=== PATIENT | female | born 1975 | race Caucasian/White ===

== ENCOUNTER 2019-06-12 14:40 | Emergency (ER) | payer BC, SELFPAY ==
--- NOTE | 2019-06-12 15:23 | ER ---
Nurse's Notes [facility] Name: Gilda Staples Age: 43 yrs Sex: Female : 1975 Arrival Date: 06/12/2019 Time: 14:43 Bed 12 Private MD: Diagnosis: Otitis media, unspecified, right ear Presentation: 06/12 14:51 Presenting complaint: Patient states: right ear pain X 1 week, draining last night. iw Transition of care: patient was not received from another setting of care. Onset of symptoms was June 07, 2019. Risk Assessment: Do you want to hurt yourself or someone else? Patient reports no desire to harm self or others. Initial Sepsis Screen: Does the patient meet any 2 criteria? No. Patient's initial sepsis screen is negative. Does the patient have a suspected source of infection? No. Patient's initial sepsis screen is negative. Care prior to arrival: None. 14:51 Method Of Arrival: Ambulatory iw 14:51 Acuity: MARGUERITE 4 iw Triage Assessment: 15:20 General: Appears in no apparent distress. Behavior is calm, cooperative. 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 - Social history:: Smoking status: Patient uses tobacco products, smokes one-half pack cigarettes per day. - Ebola Screening: : Patient negative for fever greater than or equal to 101.5 degrees Fahrenheit, and additional compatible Ebola Virus Disease symptoms Patient denies exposure to infectious person Patient denies travel to an Ebola-affected area in the 21 days before illness onset No symptoms or risks identified at this time. Screenin:25 Abuse screen: Denies threats or abuse. Denies injuries from another. Nutritional iw screening: No deficits noted. Tuberculosis screening: No symptoms or risk factors identified. Fall Risk None identified. Assessment: 15:00 General: Appears in no apparent distress. Pain: Complains of pain in right ear. Neuro: iw Level of Consciousness is awake, alert, obeys commands, Oriented to person, place, time, situation, Moves all extremities. Cardiovascular: Patient's skin is warm and dry. Respiratory: Respiratory effort is even, unlabored, Respiratory pattern is regular. EENT: Reports pain in right ear. Derm: Skin is intact, is healthy with good turgor. Musculoskeletal: Range of motion: intact in all extremities. Vital Signs: 14:52 BP 129 / 86; Pulse 72; Resp 16; Temp 98.1; Pulse Ox 100% on R/A; Weight 74.84 kg; iw Height 5 ft. 3 in. (160.02 cm); Pain 6/10; 14:52 Body Mass Index 29.23 (74.84 kg, 160.02 cm) iw ED Course: 14:43 Patient arrived in ED. as 14:52 Triage completed. iw 14:53 Ibis Venegas, RN is Primary Nurse. iw 14:53 Arm band placed on. iw 14:54 Dioni Bailey PA is PHCP. cp 14:54 Sukumar Bernabe MD is Attending Physician. cp 15:00 Patient has correct armband on for positive identification. iw 15:29 No provider procedures requiring assistance completed. Patient did not have IV access iw during this emergency room visit. Administered Medications: No medications were administered Outcome: 15:21 Discharge ordered by MD. cp 15:29 Discharged to home ambulatory. iw 15:29 Condition: good 15:29 Discharge instructions given to patient, Instructed on discharge instructions, follow up and referral plans. medication usage, Demonstrated understanding of instructions, follow-up care, medications, Prescriptions given X 1. 15:30 Patient left the ED. aa5 Signatures: Jo Ann Mas as Ibis Venegas RN RN Priya Yen RN RN aa5 Dioni Bailey PA PA cp
--- NOTE | 2019-06-12 15:23 | EDPHYS ---
Physician Documentation [facility] Name: Gilda Staples Age: 43 yrs Sex: Female : 1975 Arrival Date: 06/12/2019 Time: 14:43 Bed 12 Private MD: ED Physician Sukumar Bernabe HPI: 06/12 15:17 This 43 yrs old Female presents to ER via Ambulatory with complaints of Ear cp Pain. 15:17 The patient presents with drainage, that is purulent, pain, that is acute, tenderness. cp The complaints affect the right ear. Onset: The symptoms/episode began/occurred 1 week(s) ago. Associated signs and symptoms: Pertinent negatives: cough, fever, rhinorrhea, sinus trouble, sore throat, vertigo, vomiting. Severity of symptoms: in the emergency department the symptoms are unchanged despite home interventions. 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 - Social history:: Smoking status: Patient uses tobacco products, smokes one-half pack cigarettes per day. - Ebola Screening: : Patient negative for fever greater than or equal to 101.5 degrees Fahrenheit, and additional compatible Ebola Virus Disease symptoms Patient denies exposure to infectious person Patient denies travel to an Ebola-affected area in the 21 days before illness onset No symptoms or risks identified at this time. ROS: 15:19 Eyes: Negative for injury, pain, redness, and discharge. cp 15:19 Constitutional: Negative for body aches, chills, fever, poor PO intake. 15:19 ENT: Positive for drainage from ear(s), ear pain, Negative for difficulty swallowing, difficulty handling secretions. 15:19 Respiratory: Negative for cough, wheezing. 15:19 Skin: Negative for rash. 15:19 All other systems are negative. Exam: 15:20 Constitutional: The patient appears in no acute distress, alert, awake, well developed, cp well nourished. 15:20 Head/Face: Normocephalic, atraumatic. cp 15:20 Eyes: Periorbital structures: appear normal, Conjunctiva: normal, no exudate, no injection, Lids and lashes: appear normal, bilaterally. 15:20 ENT: External ear(s): are unremarkable, Ear canal(s): are normal, clear, TM's: bulging, on the right, erythema, that is moderate, on the right, Examination of the other ear shows no obvious abnormality, Nose: is normal, Mouth: Lips: moist, Oral mucosa: pink and intact, moist, Posterior pharynx: Airway: no evidence of obstruction, patent. 15:20 Neck: ROM/movement: is normal, is supple, without pain, no range of motions limitations, no nuchal rigidity. 15:20 Chest/axilla: Inspection: normal. 15:20 Cardiovascular: Rate: normal. 15:20 Respiratory: the patient does not display signs of respiratory distress, Respirations: normal, no use of accessory muscles, no retractions, no splinting, no tachypnea. 15:20 Skin: no rash present. Vital Signs: 14:52 BP 129 / 86; Pulse 72; Resp 16; Temp 98.1; Pulse Ox 100% on R/A; Weight 74.84 kg; iw Height 5 ft. 3 in. (160.02 cm); Pain 6/10; 14:52 Body Mass Index 29.23 (74.84 kg, 160.02 cm) iw MDM: 14:59 Patient medically screened. cp 15:21 Differential diagnosis: otitis media, otitis externa, ruptured TM, cerumen impaction. cp 15:21 Data reviewed: vital signs, nurses notes, and as a result, I will discharge patient. cp Counseling: I had a detailed discussion with the patient and/or guardian regarding: the historical points, exam findings, and any diagnostic results supporting the discharge/admit diagnosis, to return to the emergency department if symptoms worsen or persist or if there are any questions or concerns that arise at home. Administered Medications: No medications were administered Disposition: 16:24 Co-signature as Attending Physician, Sukumar Bernabe MD. rn Disposition: 06/12/19 15:21 Discharged to Home. Impression: Otitis media, unspecified, right ear. - Condition is Stable. - Discharge Instructions: Otitis Media, Adult. - Prescriptions for Augmentin 875- 125 mg Oral Tablet - take 1 tablet by ORAL route every 12 hours for 10 days; 20 tablet. - Medication Reconciliation Form, Thank You Letter, Antibiotic Education, Prescription Opioid Use form. - Follow up: Private Physician; When: 2 - 3 days; Reason: Worsening of condition. - Problem is new. - Symptoms have improved. Signatures: Ibis Venegas, RN RN Sukumar Bernabe MD MD rn Calderon, Audri, RN RN aa5 Dioni Bailey PA PA cp Corrections: (The following items were deleted from the chart) 15:30 15:21 06/12/2019 15:21 Discharged to Home. Impression: Otitis media, unspecified, right aa5 ear. Condition is Stable. Forms are Medication Reconciliation Form, Thank You Letter, Antibiotic Education, Prescription Opioid Use. Follow up: Private Physician; When: 2 - 3 days; Reason: Worsening of condition. Problem is new. Symptoms have improved. cp
== END 2019-06-12 15:30 | disposition home or self-care (01) ==
LOC: ER 14:40
DX: H66.91 Otitis media, unspecified, right ear (principal); F17.210 Nicotine dependence, cigarettes, uncomplicated
CPT/HCPCS: 99282